=== PATIENT | female | born 1970 | race Caucasian/White ===

== ENCOUNTER 2017-02-20 09:14 | Emergency (ER) | payer OTHER ==
[2017-02-20 09:23] VITALS: BP 118/80
[2017-02-20 10:32] LABS: URINE CULTURE PL NEEDED? NO; URINE SOURCE CLEAN CATCH
[2017-02-20 10:54] LABS: BILIRUBIN URINE NEGATIVE (NEGATIVE); BLOOD URINE NEGATIVE (NEGATIVE); CLARITY CLEAR (CLEAR); COLOR YELLOW; GLUCOSE URINE NEGATIVE (NEGATIVE); LEUKOCYTES URINE TRACE (NEGATIVE); NITRITE URINE NEGATIVE (NEGATIVE); PH URINE 6.5; PROTEIN URINE NEGATIVE (NEGATIVE); SP GRAVITY URINE 1.015; UROBILINOGEN URINE NORMAL
[2017-02-20 10:55] LABS: URINE EPITHELIAL CELLS >10 /HPF (<10); URINE WBC <10 /HPF (<10)
--- NOTE | 2017-02-20 11:06 | PROVIDER DOCUMENTATION ---
HPI-Rash/Wound/ReCheck - General Chief Complaint: Insect Bite/Sting Stated Complaint: SPIDER BITE/BACK PAIN Time Seen by Provider: 02/20/17 10:04 Source: patient Allergies/Adverse Reactions: Allergies Allergy/AdvReac Type Severity Reaction Status Date / Time Penicillins Allergy Unknown Unknown Verified 02/20/17 09:22 Sulfa (Sulfonamide Allergy Unknown Unknown Verified 02/20/17 09:22 Antibiotics) diphenhydramine HCl * AdvReac Unknown Verified 02/20/17 09:22 [From Benadryl] Home Medications: Home Medication List Medication Instructions Recorded Confirmed Last Taken Type Lamotrigine [Lamictal] 300 mg PO DAILY 08/15/13 02/20/17 01/16/17 08:00 History Clonazepam [Klonopin] 1 mg PO HS 01/17/17 02/20/17 01/16/17 20:00 History Gabapentin 100 mg PO DAILY 01/17/17 02/20/17 01/16/17 20:00 History Clindamycin [Cleocin] 150 mg PO Q6HR #30 capsule 02/20/17 Unknown Rx - History of Present Illness-Dermatology Nature of Presenting Problem: This pt presents today c complaints of possible infected insect bite to her left flank. She reports that 3 days ago she noticed an small erythematous area that looked suspicious for a bug bite. It got larger and this morning she states that she "popped out some white stuff." No erythematous streaking. No fever, chills. Pt is also requesting that we check her urine. She was recently treated for a UTI and "wants to make sure it got taken care of." She denies any dysuria or hematuria at this time. Location: reports: other (see hpi) Quality: reports: itchy, painful Severity: reports: mild Onset/Duration: reports: 3 days ago Timing: reports: still present Context/Associated Symptoms: reports: insect bite/sting Similar Symptoms Previously?: No Recently seen or treated by another doctor?: No Review of Systems - Adult - REVIEW OF SYSTEMS - ADULT Constitutional: reports: no symptoms reported. denies: chills, fever Eyes: reports: no symptoms reported. denies: discharge, dry eyes Ears, Nose, Mouth & Throat: reports: no symptoms reported. denies: ear discharge, ear pain Cardiovascular: reports: no symptoms reported. denies: chest pain, edema Respiratory: reports: no symptoms reported. denies: chronic cough, cough Gastrointestinal: reports: no symptoms reported. denies: abdominal pain, hematemesis Genitourinary: reports: no symptoms reported. denies: dysuria, discharge Musculoskeletal: reports: no symptoms reported. denies: bone pain, back pain Integumentary: reports: see HPI. denies: hives, hair loss Neurological: reports: no symptoms reported. denies: ataxia, dizziness/vertigo Psychiatric: reports: no symptoms reported. denies: anxiety, anti-depressant use Endocrine: reports: no symptoms reported Hematologic/Lymphatic: reports: no symptoms reported Allergic/Immunologic: reports: no symptoms reported All Other Systems: Reviewed and Negative Past History - Adult - PAST MEDICAL HISTORY-ADULT Review of Records: reports: Old Records Reviewed, Nursing Assessment Review, Medications Reviewed, Social history reviewed & non-contributory. Major Childhood Illnesses: reports: denies history Cardiovascular: reports: denies history Respiratory: reports: COPD Gastrointestinal: reports: GERD, other (PUD, esophagitis) Obstetrical/Gynecological: reports: denies history Genitourinary: reports: denies history Musculoskeletal: reports: denies history Neurological: reports: Seizures/Epilepsy Psychiatric: reports: bipolar Endocrine/Immune: reports: denies history Other Conditions: reports: denies history Additional History: HEP C - PRIOR SURGERIES/PROCEDURES Surgical/Procedure History: reports: orthopedic (extremity) (elbow), other ( breast biopsy) - IMMUNIZATION STATUS Childhood Immunizations: See Nurse Assessment Flu Vaccine: See Nurse Assessment - FAMILY HISTORY Family History: reviewed, not pertinent Physical Exam-General - PHYSICAL EXAM-ADULT Initial Vital Signs Reviewed: Yes - CONSTITUTIONAL General Appearance: appears well, alert, no apparent distress - EYES Eyes: PERRL/EOMI, pink conjunctivae - HEAD, EARS, NOSE, MOUTH & THROAT HENMT: normocephalic/atraumatic, moist mucous membranes, normal ENT inspection - NECK Neck: non-tender, full range of motion, supple, normal inspection - RESPIRATORY Respiratory: chest non-tender, lungs clear, normal breath sounds - CARDIOVASCULAR Cardiovascular: normal peripheral pulses, regular rate, rhythm - GASTROINTESTINAL (ABDOMEN) Abdominal Exam: normal bowel sounds, non tender, soft - MUSCULOSKELETAL Back Exam: normal inspection, no CVA tenderness, no vertebral tenderness. negative: CVA tenderness Extremity: normal range of motion, non-tender, normal gait, normal inspection - SKIN Integumentary: normal turgor, warm/dry, erythema (quarter sized area; appears to be insect bite), tenderness Progress - PLAN OF CARE/RESULTS Progress/Plan/Lab Results: Orders Category Date Time Status Urine Preg [ED: Urine Bedside] ORDERED Care 02/20/17 10:14 Inactive TEST-URINE [PREG] Stat Lab 02/20/17 10:[address] W/POSS RFLX CULT [URINALYSIS] Stat Lab 02/20/17 10:15 Completed Vital Signs Temp Pulse Resp BP Pulse Ox 02/20/17 09:19 97.7 F 78 18 118/80 100 Penicillins Allergy (Unknown, Verified 02/20/17 09:22) Unknown Sulfa (Sulfonamide Antibiotics) Allergy (Unknown, Verified 02/20/17 09:22) Unknown diphenhydramine HCl * [From Benadryl] Adverse Reaction (Verified 02/20/17 09:22) Unknown Lamotrigine [Lamictal] 300 mg PO DAILY 08/15/13 Clonazepam [Klonopin] 1 mg PO HS 01/17/17 Gabapentin 100 mg PO DAILY 01/17/17 Laboratory 02/20/17 02/20/17 10:15 10:15 Urine Source CLEAN CATCH Urine Color YELLOW Urine Clarity CLEAR Urine pH 6.5 Ur Specific [place] 1.015 Urine Protein NEGATIVE Urine Ketones NEGATIVE Urine Blood NEGATIVE Urine Nitrite NEGATIVE Urine Bilirubin NEGATIVE Urine Urobilinogen NORMAL Urine Microscopic RBC Not Reportable Urine WBC TRACE A Urine Microscopic WBC <10 Ur Epithelial Cells >10 A Urine Glucose NEGATIVE Urine Test NEGATIVE Departure - Departure Time of Disposition Order: 11:05 DIAGNOSIS: Infected insect bite of abdominal wall Qualifiers: Encounter type: initial encounter Qualified Code(s): S30.861A - Insect bite ( nonvenomous) of abdominal wall, initial encounter; L08.9 - Local infection of the skin and subcutaneous tissue, unspecified; W57.XXXA - Bitten or stung by nonvenomous insect and other nonvenomous arthropods, initial encounter Disposition: HOME 01 Certified Medical Emergency: Urgent Condition: Good Additional Instructions: Take medication as prescribed. Keep area clean and dry. Follow up with your primary care provider. ED Follow Up Instructions: You have been treated by a care provider in the Emergency Department. These instructions are being provided to you so you can have an understanding of how to care for yourself upon discharge. Upon discharge from the Emergency Department, you are responsible for making arrangements for follow-up care by a physician of your choice. Take all prescribed medications as directed. Return to the Emergency Department immediately for any new or worsening symptoms. You may call the Physician Referral phone number at [phone] to obtain a list of Physicians who are taking new patients. Prescriptions: Clindamycin [Cleocin] 150 mg PO Q6HR #30 capsule Attestation - Physician/ IFRAH Attestation Patient care was provided by Advanced Practice Provider:: Yes Advanced Practice Provider:: Rolan Lazaro Advanced Practice Provider documentation review:: The Mid-level provider documentation, treatment plan and medical decision making was reviewed by the physician who agrees with all treatment and medical decision making by the MLP.
== END 2017-02-20 11:18 | disposition home or self-care (01) ==
LOC: P.ED 09:14
DX: S30.861A Insect bite (nonvenomous) of abdominal wall, initial encounter (principal); W57.XXXA Bitten or stung by nonvenomous insect and other nonvenomous arthropods, initial encounter; L29.9 Pruritus, unspecified; J44.9 Chronic obstructive pulmonary disease, unspecified; K21.9 Gastro-esophageal reflux disease without esophagitis; R56.9 Unspecified convulsions; F31.9 Bipolar disorder, unspecified; B19.20 Unspecified viral hepatitis C without hepatic coma; Z79.899 Other long term (current) drug therapy
CPT/HCPCS: 81001; 81025; 99283